=== PATIENT | female | born 1955 | race Caucasian/White ===

== ENCOUNTER 2018-07-04 12:34 | Emergency (ER) | payer BC, OTHER ==
[2018-07-04 12:39] VITALS: TEMP 97.5; BMI 22.3
[2018-07-04] MEDS ORDERED: ACETAMINOPHEN 325 MG TABLET (FP) PO ONE (13:19)
--- NOTE | 2018-07-04 13:19 | PDOC ---
History of Present Illness - General Chief Complaint: Injury Stated Complaint: right arm pain s/p witnessed fall at work today Time Seen by Provider: 07/04/18 13:12 History Source: Patient Exam Limitations: No Limitations - History of Present Illness Initial Comments: 63 yo F w no reported medical history presents to the ER after a mechanical fall. She states she was holding a child with her left hand when a different child stepped on her feet and caused her to trip, fall and hit her right shoulder. She is know experiencing shoulder pain. She has been icing her shoulder since the event occurred. She has not taken any meds for the pain. She has no pain in her head, neck, elbow, wrist, or hand. She states that moving her right shoulder is a painful and she a a limited ROM in her right shoulder. She denies any chest pain, SOB, difficulty breathing, recent fevers, chills, infections, abdominal pain, back pain, dysuria, frequency, urgency, blurry vision, or other joint pain. PCP: None PSH: None reported Allergies: Seasonal and hay fever Social Hx: Denies smoking, drinking, or other substance usage. Past History - Past Medical History Allergies/Adverse Reactions: Allergies Allergy/AdvReac Type Severity Reaction Status Date / Time No Known Drug Allergies Allergy Verified 07/04/18 12:36 HAY FEVER Allergy Mild SNEEZING Uncoded 07/04/18 12:35 Home Medications: Ambulatory Orders NK [No Known Home Medication] 07/04/18 Anemia: No Asthma: No Cancer: No Cardiac Disorders: No CVA: No COPD: No CHF: No Dementia: No Diabetes: No GI Disorders: No Disorders: No HTN: No Hypercholesterolemia: No Liver Disease: No Seizures: No Thyroid Disease: No - Surgical History Abdominal Surgery: No Appendectomy: No Cardiac Surgery: No Cholecystectomy: No Lung Surgery: No Neurologic Surgery: No Orthopedic Surgery: No - Suicide/Smoking/Psychosocial Hx Smoking History: Never smoked Have you smoked in the past 12 months: No Hx Alcohol Use: No Drug/Substance Use Hx: No Substance Use Type: Alcohol Hx Substance Use Treatment: No Review of Systems - Review of Systems Able to Perform ROS?: Yes Comments:: CONSTITUTIONAL: Absent: fever, no chills, no fatigue EYES: Absent: visual changes ENT: Absent: ear pain, no sore throat CARDIOVASCULAR: Absent: chest pain, no palpitations RESPIRATORY: Absent: cough, no SOB GI: Absent: abdominal pain, no nausea, no vomiting, no constipation, no diarrhea GENITOURINARY: Absent: dysuria, no frequency, no hematuria MUSKULOSKELETAL: Present: Arthralgia Absent: back pain, no myalgia SKIN: Absent: rash NEURO: Absent: headache *Physical Exam - Vital Signs Last Vital Signs Temp Pulse Resp BP Pulse Ox 97.5 F L 96 H 18 181/63 H 100 07/04/18 12:35 07/04/18 12:35 07/04/18 12:35 07/04/18 12:35 07/04/18 12:35 - Physical Exam Comments: GENERAL: Well-appearing, well-nourished. No apparent distress. HEENT: Normocephalic, atraumatic. PERRL, EOM intact. CARDIOVASCULAR: Normal S1, S2. Regular rate and rhythm. PULMONARY: Clear to auscultation bilaterally. ABDOMEN: Soft, non-distended, non-tender. RIGHT ARM: The shoulder is cold to touch. Patient is holding her arm in a flexed position. Limited ability to abduct arm more than 30 degrees. Otherwise good shoulder ROM. No bony TTP. Patient has full strength in the arm and full sensation. 2+ pulses. Full ROM in elbow and wrist. EXTREMITIES: Normal ROM in other 3 extremities. No gross deformities. SKIN: Warm, dry. No rash NEUROLOGICAL: No focal neurological deficits. Moderate Sedation - Procedure Monitoring Vital Signs: Procedure Monitoring Vital Signs Temperature 97.5 F L 07/04/18 12:35 Pulse Rate 96 H 07/04/18 12:35 Respiratory Rate 18 07/04/18 12:35 Blood Pressure 181/63 H 07/04/18 12:35 O2 Sat by Pulse Oximetry (%) 100 07/04/18 12:35 Medical Decision Making - Medical Decision Making 63 yo F w no sig pmh presents after mechanical fall and shoulder injury DDx IBNLT: Shoulder dislocation, shoulder fx, rotator cuff injury, other ligamentous injury, muscle strain. Plan: Shoulder x-ray, tylenol, re-assess. Shoulder X-ray shows comminuted proximal right humeral head Fx - will apply splint and give patient ortho follow up. - tylenol and motrin for pain control. - Ortho consulted: Dr. Hernandez and Sonido Head came and evaluated patient. He placed a sling on patient and told her she will need surgery as an outpatient. He scheduled an appointment with her for Sunday. *DC/Admit/Observation/Transfer Diagnosis at time of Disposition: Shoulder fracture, right - Discharge Dispostion Disposition: HOME Condition at time of disposition: Stable Decision to Admit order: No - Referrals Referrals: Tavo Head DO [Staff Physician] - - Patient Instructions Printed Discharge Instructions: How to Use a Sling, How to Prevent Falls, DI for Shoulder Fracture Additional Instructions: You came into the ER with shoulder pain. The x-ray showed you have a broken humerus bone in your shoulder. See attached documents for further explanation. Please make sure to goto your scheduled follow up appointment on Sunday with Dr. Head. Come back to the ER if you get a fever, have severe pain, start vomiting, or have any other new or worsening concerns. Thank you for coming to the [facility]. We hope you feel better soon! Print Language: FRISIAN - Post Discharge Activity
[2018-07-04] MEDS ORDERED: ACETAMINOPHEN 325 MG TABLET (FP) ONE (13:23)
--- NOTE | 2018-07-04 13:30 | PDOC ---
Attending Attestation - Resident Resident Name: Josh Omalley - HPI HPI: 07/04/18 16:16 Pt presents to the ED complaining of R shoulder pain after a mechanical trip and fall onto her R shoulder. She has decreased ROM of her shoulder, but denies other complaints. - Physicial Exam PE: 07/04/18 16:17 Agree with resident exam. + pain and tenderness at the R shoulder without bony deformity. Able to abduct to 30 degrees only. Intact sensation over the deltoid, posterior arm and forearm and hand. Intact radial pulse. - Medical Decision Making 07/04/18 16:19 Pt presents to the ED complaining of R shoulder pain after fall. + comminuted R humeral neck fracture on xray. Case discussed with Dr. Head, who has come to the ED to evaluate the patient. Patient placed in sling by Dr. Head and will follow up with him in clinic.
--- NOTE | 2018-07-04 16:22 | CONSULT ---
Consult - text type - Consultation Consultation Note: ORTHOPEDIC SURGERY CONSULTATION NOTE Department of Orthopedic Surgery HISTORY OF PRESENT ILLNESS Mikayla Haley is an active 63 year old female who presents to [facility] ED with right shoulder pain. The orthopedic service was consulted for a right proximal humerus fracture. The injury occurred today after a mechanical fall at work. The patient notes sharp pain to the right shoulder which improves with rest. Denies any other injuries. Denies numbness, tingling or other constitutional complaints. Denies tobacco use, drug use, alcohol abuse. Active Problems Problem Status Category Onset Shoulder fracture, right Acute Medical Social History Smoking history Never smoked Hx Alcohol Use No Allergies Allergy/AdvReac Type Severity Reaction Status Date / Time No Known Drug Allergies Allergy Verified 07/04/18 12:36 HAY FEVER Allergy Mild SNEEZING Uncoded 07/04/18 12:35 Vital Signs (last) Temp Pulse Resp BP Pulse Ox 97.5 F L 96 H 18 181/63 H 100 07/04/18 12:35 07/04/18 12:35 07/04/18 12:35 07/04/18 12:35 07/04/18 12:35 Intake and Output 07/02/18 07/03/18 07/04/18 23:59 23:59 23:59 Other: Weight 130 lb Height 5 ft 4 in Body Mass Index (BMI) 22.3 Weight Measurement Method Est/Stated by Patient FAMILY HISTORY Unknown REVIEW OF SYMPTOMS A twelve-point review of systems was performed and was negative except as noted in HPI. PHYSICAL EXAM Constitutional: Alert and oriented to person, place, and time. Appears well- developed and well-nourished. No acute distress, appropriate mood and affect. HEENT: Normocephalic, atraumatic Cardiovascular: Regular rate and rhythm, extremities warm, no cyanosis. Pulmonary: Breathing comfortably, normal air movement, no audible wheezing. Right Upper Extremity: Skin warm, dry, and intact; Swelling of the shoulder. Muscle mass equal and symmetric to contralateral side. No atrophy noted. Tender to palpation at right shoulder; nontender throughout rest of extremity. Full passive and active ROM of elbow, wrist and fingers, free from pain. Joints stable with no pathologic laxity. M/R/U/MSK/AX motor intact; SILT distally; 2+ radial pulses; Cap refill brisk. Left Upper Extremity: No tenderness to palpation. Full passive and active ROM, free from pain. Right Lower Extremity: No tenderness to palpation. Full passive and active ROM, free from pain. Left Lower Extremity: No tenderness to palpation. Full passive and active ROM, free from pain. IMAGING I personally reviewed all radiographs. They demonstrate at least a three part proximal humerus fracture. ASSESSMENT AND PLAN Mikayla Haley is a 63 year old right hand dominant female presenting status post fall with a right sided proximal humerus fracture. We have reviewed the imaging and clinical findings in detail, as well as their potential implications. After appropriate informed discussion, the patient was placed in a sling. Will need axillary radiograph prior to discharge. Patient was instructed regarding: non weight bearing on the fractured side. signs and symptoms of compartment syndrome and need to seek immediate care should new onset numbness, tingling, or significantly increasing pain occur. keeping the sling clean and dry. avoiding NSAID medications. She would like to review her treatment options with her family. She can follow up with me in the office on SundayJuly 08 at 9 am. She knows to call sooner if she has any questions. All questions were answered. Thank you for involving our team in the care of this patient. [phone]. Tavo Head, DO Orthopedic Surgery
[2018-07-04 17:13] VITALS: BP 166/88; PULSE 90
== END 2018-07-04 17:05 | disposition home or self-care (01) ==
LOC: FER 12:34
DX: S42.91XA Fracture of right shoulder girdle, part unspecified, initial encounter for closed fracture (principal); W03.XXXA Other fall on same level due to collision with another person, initial encounter; Y93.89 Activity, other specified; Y92.89 Other specified places as the place of occurrence of the external cause; Y99.0 Civilian activity done for income or pay
CPT/HCPCS: 73030-TC-RT-FY; 99282-25